=== PATIENT | male | born 2000 | race Caucasian/White ===

== ENCOUNTER 2023-10-26 02:41 | Emergency (ER) | payer BC ==
[~2023-10-26] VITALS: Ht 190.5 cm; Wt 72.7 kg
[2023-10-26 02:47] VITALS: TEMP 99.2
[2023-10-26] MEDS ORDERED: dexAMETHasone 10 MG/ML VIAL PO ONE (03:00)
[2023-10-26] MEDS ORDERED: ZITHROMAX500 M2 PO (03:01)
[2023-10-26 03:24] VITALS: BP 121/69; PULSE 94
== END 2023-10-26 03:24 | disposition home or self-care (01) ==
LOC: COL.ER 02:41
DX: J02.9 Acute pharyngitis, unspecified (principal); Z88.0 Allergy status to penicillin
CPT/HCPCS: J1100